=== PATIENT | female | born 1980 | race Caucasian/White ===

== ENCOUNTER 2023-09-20 19:48 | Emergency (ER) | payer BC, SELFPAY ==
[2023-09-20 19:56] VITALS: BP 131/75; PULSE 64; RESP 16; TEMP 36.4; O2SAT 98
--- NOTE | 2023-09-20 20:10 | ED.URI ---
HPI - URI/Sore Throat General Chief Complaint: Upper Respiratory Infection Stated Complaint: Sore Throat Time Seen by Provider: 09/20/23 20:10 Source: patient Mode of arrival: ambulatory Limitations: no limitations History of Present Illness HPI Narrative: 43-year-old female presents with complaint of nasal congestion, sinus pressure, postnasal drainage, cough for approximately 2 weeks. Called her PCP and was not able to get in for an appointment called her in an antibiotic but she did not have an exam. Patient states she told her primary care physician that she thought she had a sinus infection. Patient reports no change in symptoms since taking Z-Alfredo. Has had sore throat since yesterday. No difficulty breathing or swelling. Afebrile. Using a nasal spray. Does not want to take antihistamine or decongestant due to . All systems reviewed and negative except as noted above. Related Data Home Medications Medication Instructions Recorded Confirmed albuterol sulfate 2.5 mg/3 mL 2.5 mg inhalation Q6-8H PRN 09/20/23 09/20/23 (0.083 %) solution for nebulization Wheezing azithromycin 250 mg tablet 250 mg PO DAILY 09/20/23 09/20/23 benzonatate 100 mg capsule 100 mg PO Q8-10H PRN Cough 09/20/23 09/20/23 montelukast 10 mg tablet 10 mg PO DAILY 09/20/23 09/20/23 tranexamic acid 650 mg tablet 650 mg PO Q4-6H 09/20/23 09/20/23 Allergies Allergy/AdvReac Type Severity Reaction Status Date / Time No Known Allergies Allergy Verified 09/20/23 20:07 Review of Systems Review of Systems: CONSTITUTIONAL: Denies fever, chills, or sweats. EYES: Denies visual changes, redness, or discharge. ENT: Reports rhinorrhea, congestion, sore throat and bilateral otalgia. CARDIOVASCULAR: Denies chest pain, palpitations, or edema. RESPIRATORY: Reports cough. Denies dyspnea. GASTROINTESTINAL: Denies abdominal pain, nausea, vomiting, or diarrhea. GENITOURINARY: Denies dysuria or hematuria. SKIN: Denies rash or itching. MUSCULOSKELETAL: Denies back pain, joint pain, or myalgia. NEUROLOGIC: Denies headache, numbness, or weakness. PSYCHIATRIC: Denies anxiety or depression. All other systems reviewed are negative, except as documented in HPI. PMFSH Comments At time of signature, agree with nursing past medical, surgical, social and family history. There is no relevant family history pertinent to the presenting complaint. Exam Narrative: GENERAL: This is a well-nourished, well-developed patient, in no apparent distress. HEAD: normocephalic, atraumatic. EYES: PERRL. Sclera clear/white. Vision is grossly intact. EARS: External ears normal, auditory canals clear and without drainage, fluid to bilateral TMs without erythema or perforation. NOSE: External nose normal with purulent nasal drainage with erythema and swelling to bilateral nares. Frontal sinus tenderness on palpation. THROAT: Mucous membranes moist, bright red spots to posterior pharynx possibly broken blood vessels from coughing. no exudates. NECK: Neck supple, non-tender without lymphadenopathy, masses or thyromegaly. CARDIOVASCULAR: Regular rate and rhythm without murmurs, gallops, or rubs. RESPIRATORY: Clear to auscultation. Breath sounds equal bilaterally. No wheezes, rales, or rhonchi. SKIN: warm, Dry, intact with no suspicious lesions or rash, good texture and turgor. NEURO: awake, alert, and oriented to person, place and time. There were no obvious focal neurologic abnormalities. EXTREMITIES: No joint tenderness, effusion, or edema noted. Course Course Level of Care: Express Care Visit Vital Signs Vital signs: Vital Signs Temperature 36.4 C 09/20/23 19:56 Pulse Rate 64 09/20/23 19:56 Respiratory Rate 16 09/20/23 19:56 Blood Pressure 131/75 09/20/23 19:56 Pulse Oximetry 98 09/20/23 19:56 Oxygen Delivery Room Air 09/20/23 19:56 Temperature 36.4 C 09/20/23 19:56 Pulse Rate 64 09/20/23 19:56 Respiratory Rate 16 09/20/23
== END 2023-09-20 20:25 | disposition home or self-care (01) ==
PROVIDERS: Emergency Provider Nurse Practitioner Family
DX: J01.90 Acute sinusitis, unspecified (principal)
CPT/HCPCS: 87081; 87880; 99213; G0463